=== PATIENT | male | born 1970 | race Caucasian/White ===

== ENCOUNTER 2016-09-13 12:11 | Inpatient (IN) | payer OTHER ==
[2016-09-13] VITALS (11 sets, daily range): BP systolic 110–136; BP diastolic 67–85
[~2016-09-13] VITALS: Ht 177.8 cm; Wt 117.9 kg
[2016-09-13] MEDS ORDERED: Morphine Sulfate 4mg/ml Inj IVP ONE (13:00)
--- NOTE | 2016-09-13 13:03 | Emergency Room Report ---
History of Present Illness General Chief Complaint: Pain Source: Patient Present Illness HPI The patient is a 46 old male status post cervical spine fusion 4 days prior presenting for hematoma of the surgical site as well as hypertension. The patient was seen as a followup by his surgeon today who told him to come to the emergency department. He was told that he would have an excision of a hematoma today after he has been admitted. Pain is described as a 2/10 dull ache to the surgical site and does not radiate. He has been using Johnson and soma for pain which has helped. He denies any fever or chills. He states that he has had prehypertensive diagnosed in the past but has never taken any anti-hypertensive medications. He denies any shortness of breath or chest pain. He denies other symptoms including N, V, chills, abd pain, MICHEL, dizziness Allergies: Coded Allergies: TETANUS IMMUNE GLOBULIN (Verified Allergy, Unknown, 09/13/16) Patient History Past Medical History: see triage record Pertinent Family History: none Reviewed Nursing Documentation: PMH: Agreed, PSxH: Agreed Nursing Documentation-PMH Hx Hypertension: Yes Review of Systems All Other Systems: negative except mentioned in HPI Physical Exam Vital Signs Date Time Temp Pulse Resp B/P Pulse Ox O2 Delivery O2 Flow Rate FiO2 09/13/16 12:16 98.4 18 97 Room Air Sp02 EP Interpretation: reviewed, normal General Appearance: no apparent distress, alert, GCS 15, non-toxic Head: normocephalic, atraumatic Eyes: bilateral eye PERRL, bilateral eye normal inspection ENT: hearing grossly normal, normal pharynx, no angioedema, normal voice Neck: other - surgical site of R anterior neck has soft tissue swelling and erythema. TTP. No drainage Respiratory: chest non-tender, lungs clear, normal breath sounds, speaking full sentences Cardiovascular #1: regular rate, rhythm, no edema, no gallop, no JVD, no murmur , no rub Cardiovascular #2: 2+ carotid (R), 2+ carotid (L), 2+ radial (R), 2+ radial (L) , 2+ dorsalis pedis (R), 2+ dorsalis pedis (L) Musculoskeletal: back normal, gait/station normal, normal range of motion, non- tender Neurologic: alert, oriented x3, responsive, motor strength/tone normal, sensory intact, speech normal Psychiatric: judgement/insight normal, memory normal, mood/affect normal, no suicidal/homicidal ideation Skin: normal color, no rash, warm/dry, well hydrated Lymphatic: no adenopathy Medical Decision Making PA Attestation Dr. Price is my supervising physician. Patient management was discussed with my supervising physician Diagnostic Impression: Primary Impression: Hematoma of neck Qualified Codes: S10.93XA - Contusion of unspecified part of neck, initial encounter Additional Impression: HTN (hypertension) Qualified Codes: I15.9 - Secondary hypertension, unspecified ER Course The patient is a 46 old male status post cervical spine fusion 4 days prior presenting for hematoma of the surgical site as well as hypertension. DDx considered but not limited to: surgical site hematoma, infection, thrombus, HTN urgency/emergency, among others PE: HTN. Afebrile. NAD HEENT: Surgical site of the R anterior neck has surrounding soft tissue swelling and erythema. No bleeding or DC. TTP. RRR. No MRG. Lungs CTA bilat. CXR unremarkable. EKG shows no acute changes. Labs show leukocytosis. Otherwise unremarkable. Cardiac markers essentially negative. Occult blood in urine. Pt has UTI which is being treated with PO cipro. The patient will be admitted and surgery for hematoma evacuation to be done at [address] Price has spoken with admitting physician. He agrees with plan and is NPO since this morning. Laboratory Tests Test 09/13/16 12:55 09/13/16 14:50 White Blood Count 12.5 K/UL (4.8-10.8) H Red Blood Count 5.14 M/UL (4.70-6.10) Hemoglobin 16.1 G/DL (14.2-18.0) Hematocrit 49.0 % (42.0-52.0) Mean Corpuscular Volume 95 FL (80-99) Mean Corpuscular Hemoglobin 31.3 PG (27.0-31.0) H Mean Corpuscular Hemoglobin Concent 32.8 G/DL (32.0-36.0) Red Cell Distribution Width 12.4 % (11.6-14.8) Platelet Count 327 K/UL (150-450) Mean Platelet Volume 6.3 FL (6.5-10.1) L Neutrophils (%) (Auto) 72.4 % (45.0-75.0) Lymphocytes (%) (Auto) 14.6 % (20.0-45.0) L Monocytes (%) (Auto) 10.8 % (1.0-10.0) H Eosinophils (%) (Auto) 1.1 % (0.0-3.0) Basophils (%) (Auto) 1.1 % (0.0-2.0) Prothrombin Time 10.0 SEC (9.30-11.50) Prothrombin Time INR 1.0 (0.9-1.1) PTT 30 SEC (23-33) Sodium Level 138 mEQ/L (135-145) Potassium Level 4.7 mEQ/L (3.4-4.9) Chloride Level 97 mEQ/L (98-107) L Carbon Dioxide Level 26 mEQ/L (20-30) Anion Gap 15 (5-15) Blood Urea Nitrogen 10 mg/dL (7-23) Creatinine 1.3 mg/dL (0.7-1.2) H Estimate Glomerular Filtration Rate 59.4 mL/min (>60) Glucose Level 97 mg/dL (74-106) Calcium Level 9.5 mg/dL (8.6-10.2) Total Bilirubin 0.7 mg/dL (0.0-1.2) Aspartate Amino Transferase (AST) 35 U/L (5-40) Alanine Aminotransferase (ALT) 42 U/L (3-41) H Alkaline Phosphatase 77 U/L (40-129) Total Creatine Kinase 143 U/L (38-174) Creatine Kinase MB < 1.5 ng/mL (< 6.7) Creatine Kinase MB Relative Index Troponin I < 0.30 ng/mL (<=0.30) Total Protein 7.5 g/dL (6.6-8.7) Albumin 4.4 g/dL (3.5-5.2) Globulin 3.1 g/dL Albumin/Globulin Ratio 1.4 (1.0-2.7) Urine Color Pale yellow Urine Appearance Clear Urine pH 7 (4.5-8.0) Urine Specific [place] 1.010 (1.005-1.035) Urine Protein Negative (NEGATIVE) Urine Glucose (UA) Negative (NEGATIVE) Urine Ketones 4+ (NEGATIVE) H Urine Occult Blood 4+ (NEGATIVE) H Urine Nitrite Negative (NEGATIVE) Urine Bilirubin Negative (NEGATIVE) Urine Urobilinogen Normal MG/DL (0.0-1.0) Urine Leukocyte Esterase Negative (NEGATIVE) Urine RBC 5-10 /HPF (0 - 0) H Urine WBC 0-2 /HPF (0 - 0) Urine Squamous Epithelial Cells None /LPF (NONE/OCC) Urine Bacteria Few /HPF (NONE) Lab Results Impression + leukocytosis. + occult blood in urine EKG Diagnostic Results EP Interpretation: NSR. Kay cute changes Rate: tachycardiac - 104 Rhythm: NSR ST Segments: no acute changes ASA given to the pt in ED: No PA Scribe Text EKG was reviewed and read with my supervising physician. No acute ST segment changes are seen. Normal rhythm. Mild tachycardia. No acute changes. Chest X-Ray Diagnostic Results Chest X-Ray Diagnostic Results : Chest X-Ray Ordered: Yes # of Views/Limited/Complete: 1 View Indication: Other - pre-op EP Interpretation: Yes Interpretation: no consolidation, no effusion, no pneumothorax, no acute cardiopulmonary disease Impression: No acute disease Interpreting ER Provider: Dr. Leah CONTRERAS Scribe Text I am acting as scribe for my supervising physician. My supervising physician's interpretation of the chest xrays are there is no consolidation, no effusion, no acute cardiopulmonary disease, no pneumothorax Last Vital Signs Date Time Temp Pulse Resp B/P Pulse Ox O2 Delivery O2 Flow Rate FiO2 09/13/16 12:16 98.4 18 97 Room Air Status: improved Disposition: ADMITTED INPATIENT Condition: Stable FRANSICO TROY Sep 13, 2016 13:03
[2016-09-13 13:18] LABS: BASOPHILS % (AUTO) 1.1 % (0.0-2.0); EOSINOPHILS % (AUTO) 1.1 % (0.0-3.0); LYMPHOCYTES % (AUTO) 14.6 % (20.0-45.0); MEAN CORPUSCULAR HEMOGLOBIN 31.3 PG (27.0-31.0); MEAN CORPUSCULAR HGB CONC 32.8 G/DL (32.0-36.0); MEAN CORPUSCULAR VOLUME 95 FL (80-99); MEAN PLATELET VOLUME 6.3 FL (6.5-10.1); MONOCYTES % (AUTO) 10.8 % (1.0-10.0); NEUTROPHILS % (AUTO) 72.4 % (45.0-75.0); PLATELET COUNT 327 K/UL (150-450); RED BLOOD COUNT 5.14 M/UL (4.70-6.10); RED CELL DISTRIBUTION WIDTH 12.4 % (11.6-14.8); WHITE BLOOD COUNT 12.5 K/UL (4.8-10.8)
[2016-09-13 13:28] LABS: CALCIUM 9.5 mg/dL (8.6-10.2); CREATININE 1.3 mg/dL (0.7-1.2); GLOMERULAR FILTRATION RATE 59.4 mL/min (>60); TOTAL PROTEIN 7.5 g/dL (6.6-8.7); TROPONIN I < 0.30 ng/mL (<=0.30)
[2016-09-13 13:29] LABS: ALBUMIN/GLOBULIN RATIO 1.4 (1.0-2.7); POTASSIUM 4.7 mEQ/L (3.4-4.9)
[2016-09-13 13:37] LABS: CKMB < 1.5 ng/mL (< 6.7)
[2016-09-13 15:20] LABS: APPEARANCE,URINE CLEAR; KETONES,URINE 4+ (NEGATIVE); LEUKOCYTE ESTERASE ,URINE NEGATIVE (NEGATIVE); NITRITE,URINE NEGATIVE (NEGATIVE); PH,URINE 7 (4.5-8.0); PROTEIN,URINE NEGATIVE (NEGATIVE); UROBILINOGEN,URINE NORMAL MG/DL (0.0-1.0)
[2016-09-13 15:41] LABS: BACTERIA,URINE FEW /HPF; WBC,URINE 0-2 /HPF (0 - 0)
[2016-09-13] MEDS ORDERED: LORazepam Inj 2mg/ml 1ml IV PRN ×2 (16:00→18:15)
[2016-09-13] MEDS ORDERED: DuoNeb 0.5-3(2.5)mg/3ml neb HHN PRN (16:00)
[2016-09-13] MEDS ORDERED: HydrALAZINE 25mg tab ORAL PRN (16:00)
[2016-09-13] MEDS ORDERED: Morphine Sulfate 4mg/ml Inj IVP PRN (16:00)
[2016-09-13] MEDS ORDERED: Morphine Sulfate 2mg/ml Inj IVP PRN (16:00)
[2016-09-13] MEDS ORDERED: Mylanta II UD 30ml ORAL PRN (16:00)
--- NOTE | 2016-09-13 16:26 | Pre-Procedure Note/Attestation ---
Pre-Procedure Note/Attestation Complete Prior to Procedure Planned Procedure: not applicable Procedure Narrative: Evacuation of postoperative cervical hematoma, irrigation and debridement Indications for Procedure Pre-Operative Diagnosis: Postoperative surgical hematoma and neck swelling Attestation I attest that I discussed the nature of the procedure; its benefits; risks and complications; and alternatives (and the risks and benefits of such alternatives ), prior to the procedure, with the patient (or the patient's legal technical sales representatives). I attest that, if there was a reasonable possibility of needing a blood transfusion, the patient (or the patient's legal technical sales representatives) was given the [facility] standardized written summary, pursuant to the [place] Blood Safety Act ([place] Health and Safety Code # 1645, as amended). I attest that I re-evaluated the patient just prior to the surgery and that there has been no change in the patient's H&P, except as documented below: HUANG PETERSON Sep 13, 2016 16:26
--- NOTE | 2016-09-13 16:26 | Brief Operative Note ---
Immediate Post Operative Note Operative Note Chief Complaint: Neck swelling with a patent airway Pre-op Diagnosis: Postoperative surgical hematoma and neck swelling Procedure: Evacuation of postoperative cervical hematoma, irrigation and debridement Post-op Diagnosis: same as pre-op Findings: consistent w/pre-op dx studies Surgeon: Nya Anesthesia: general Specimen: none Complications: none Condition: stable Estimated Blood Loss: none Drains: RAY Implant(s) used?: HUANG [place] Sep 13, 2016 16:26
--- NOTE | 2016-09-13 16:28 | History and Physical ---
History of Present Illness General Date patient seen: Sep 13, 2016 Time patient seen: 16:03 Reason for Hospitalization: cervical spine hematoma Present Illness HPI 46 y/o man who recently had cervical spine fusion at [facility] [facility] [place] , went to his postop followup appt with his surgeon, noted to have R neck swelling and redness around the incision site. He complains of pain in that area as well. Pt SBP was mostly in the 140s at home while on 5mg norvasc. However in spine surgeons office BP was 160/110. Pt was sent to the ER to be admitted for evacuation of cervical spine hematoma. No chest pain or dyspnea, no fevers/chills. SBP in the ED has been mostly in the 140-150 range, getting additional dose of norvasc now. Allergies: Coded Allergies: TETANUS IMMUNE GLOBULIN (Verified Allergy, Unknown, 09/13/16) Patient History History Provided By: Patient, Significant Other Healthcare decision maker Resuscitation status full code Advanced Directive on File Past Medical/Surgical History Past Medical/Surgical History: (1) Hematoma of neck (2) HTN (hypertension) Family History Family History: Patient reports no known family medical history. Social History Social History: (1) No significant social history Review of Systems ROS Narrative CONSTITUTIONAL: No weight loss, fever, chills, weakness or fatigue. HEENT: Eyes: No visual loss, blurred vision, double vision or yellow sclerae. Ears, Nose, Throat: No hearing loss, sneezing, congestion, runny nose or sore throat. SKIN: No rash or itching. CARDIOVASCULAR: No chest pain, chest pressure or chest discomfort. No palpitations or edema. RESPIRATORY: No shortness of breath, cough or sputum. GASTROINTESTINAL: No anorexia, nausea, vomiting or diarrhea. No abdominal pain or blood. NEUROLOGICAL: No headache, dizziness, syncope, paralysis, ataxia, numbness or tingling in the extremities. No change in bowel or bladder control. MUSCULOSKELETAL: + neck pain HEMATOLOGIC: No anemia, bleeding or bruising. LYMPHATICS: No enlarged nodes. No history of splenectomy. PSYCHIATRIC: No history of depression or anxiety. ENDOCRINOLOGIC: No reports of sweating, cold or heat intolerance. No polyuria or polydipsia. ALLERGIES: No history of asthma, hives, eczema or rhinitis. Physical Exam Physical Exam Narrative General: alert, cooperative, no distress, appears stated age Head: normocephalic, without obvious abnormality, atraumatic Eyes: conjunctivae/corneas clear. PERRL, EOM's intact Throat: lips, mucosa, and tongue normal. MMM Neck: + erythema, +edema on R neck Lungs: clear to auscultation bilaterally Heart: regular rate and rhythm, S1, S2 normal, no murmur, click, rub or gallop Abdomen: soft, non-tender, non-distended, bowel sounds normal; no masses or organomegaly Extremities: extremities normal, atraumatic, no cyanosis or edema Pulses: 2+ and symmetric Skin: skin color, texture, turgor normal; no rashes or lesions Neurologic: grossly normal, no focal deficits Last 24 Hour Vital Signs Date Time Temp Pulse Resp B/P Pulse Ox O2 Delivery O2 Flow Rate FiO2 09/13/16 15:52 98.4 18 136/74 97 Room Air 09/13/16 14:15 84 136/74 09/13/16 12:16 98.4 18 97 Room Air Laboratory Tests Test 09/13/16 12:55 09/13/16 14:50 White Blood Count 12.5 K/UL (4.8-10.8) H Red Blood Count 5.14 M/UL (4.70-6.10) Hemoglobin 16.1 G/DL (14.2-18.0) Hematocrit 49.0 % (42.0-52.0) Mean Corpuscular Volume 95 FL (80-99) Mean Corpuscular Hemoglobin 31.3 PG (27.0-31.0) H Mean Corpuscular Hemoglobin Concent 32.8 G/DL (32.0-36.0) Red Cell Distribution Width 12.4 % (11.6-14.8) Platelet Count 327 K/UL (150-450) Mean Platelet Volume 6.3 FL (6.5-10.1) L Neutrophils (%) (Auto) 72.4 % (45.0-75.0) Lymphocytes (%) (Auto) 14.6 % (20.0-45.0) L Monocytes (%) (Auto) 10.8 % (1.0-10.0) H Eosinophils (%) (Auto) 1.1 % (0.0-3.0) Basophils (%) (Auto) 1.1 % (0.0-2.0) Prothrombin Time 10.0 SEC (9.30-11.50) Prothromb Time International Ratio 1.0 (0.9-1.1) Activated Partial Thromboplast Time 30 SEC (23-33) Sodium Level 138 mEQ/L (135-145) Potassium Level 4.7 mEQ/L (3.4-4.9) Chloride Level 97 mEQ/L (98-107) L Carbon Dioxide Level 26 mEQ/L (20-30) Anion Gap 15 (5-15) Blood Urea Nitrogen 10 mg/dL (7-23) Creatinine 1.3 mg/dL (0.7-1.2) H Estimat Glomerular Filtration Rate 59.4 mL/min (>60) Glucose Level 97 mg/dL (74-106) Calcium Level 9.5 mg/dL (8.6-10.2) Total Bilirubin 0.7 mg/dL (0.0-1.2) Aspartate Amino Transf (AST/SGOT) 35 U/L (5-40) Alanine Aminotransferase (ALT/SGPT) 42 U/L (3-41) H Alkaline Phosphatase 77 U/L (40-129) Total Creatine Kinase 143 U/L (38-174) Creatine Kinase MB < 1.5 ng/mL (< 6.7) Creatine Kinase MB Relative Index Troponin I < 0.30 ng/mL (<=0.30) Total Protein 7.5 g/dL (6.6-8.7) Albumin 4.4 g/dL (3.5-5.2) Globulin 3.1 g/dL Albumin/Globulin Ratio 1.4 (1.0-2.7) Urine Color Pale yellow Urine Appearance Clear Urine pH 7 (4.5-8.0) Urine Specific [place] 1.010 (1.005-1.035) Urine Protein Negative (NEGATIVE) Urine Glucose (UA) Negative (NEGATIVE) Urine Ketones 4+ (NEGATIVE) H Urine Occult Blood 4+ (NEGATIVE) H Urine Nitrite Negative (NEGATIVE) Urine Bilirubin Negative (NEGATIVE) Urine Urobilinogen Normal MG/DL (0.0-1.0) Urine Leukocyte Esterase Negative (NEGATIVE) Urine RBC 5-10 /HPF (0 - 0) H Urine WBC 0-2 /HPF (0 - 0) Urine Squamous Epithelial Cells None /LPF (NONE/OCC) Urine Bacteria Few /HPF (NONE) Height (Feet): 5 Height (Inches): 10.00 Weight (Pounds): 250 Assessment/Plan Problem List: (1) Hematoma of neck Assessment & Plan: Admit to inpatient Pain control Supp care No anticoagulants, no nsaids If patient is required to have surgery, based on the patient's medical history, and other available ancillary data, the patient is a LOW risk for an INTERMEDIATE risk procedure. Per the most recent ACC/AHA guidelines, the patient does not need any further cardiopulmonary testing prior to the procedure and there do not appear to be any clear medical contraindications to proceeding with the proposed procedure. ICD Codes: S10.93XA - Contusion of unspecified part of neck, initial encounter SNOMED: 485065392 (2) HTN (hypertension) Assessment & Plan: Cont Norvasc, increase to 10mg daily Hydralazine prn SBP>140 ICD Codes: I10 - Essential (primary) hypertension SNOMED: 76812113 KETURAH FELDMAN Sep 13, 2016 16:28
[2016-09-13] MEDS ORDERED: Naloxone 0.4mg/ml Inj IVP PRN (16:30)
[2016-09-13] MEDS ORDERED: D5NS 1,000 ML IV SCH (16:30)
[2016-09-13] MEDS ORDERED: Bacitracin 50000 Units Vial ONE ×5 (16:34→18:43)
[2016-09-13] MEDS ORDERED: Glycopyrrolate 0.2mg/ml 1ml Vial ONE (17:00)
[2016-09-13] MEDS ORDERED: LR 1000ml ONE (17:00)
[2016-09-13] MEDS ORDERED: Lidocaine 1% MPF 10mg/ml 5ml ONE (17:00)
[2016-09-13] MEDS ORDERED: Dexamethasone 4mg/ml vial ONE (17:00)
[2016-09-13] MEDS ORDERED: Nimbex 2mg/ml Inj 10ML IVP ONE (17:00)
[2016-09-13] MEDS ORDERED: Midazolam 2mg/2ml Inj ONE (17:00)
[2016-09-13] MEDS ORDERED: Sterile Water Irrig 1000ml IRRIG ONE (17:00)
[2016-09-13] MEDS ORDERED: fentaNYL 100 mcg/2 mL IV ONE (17:00)
[2016-09-13] MEDS ORDERED: Propofol 10mg/ml 20ml IV ONE (17:09)
[2016-09-13] MEDS ORDERED: Vancomycin 1gm inj IVPB ONE ×4 (17:15→18:43)
[2016-09-13] MEDS ORDERED: Thrombin 5000 units TOPIC ONE ×2 (17:16→18:06)
[2016-09-13] MEDS ORDERED: Neostigmine 1mg/ml 10ml Inj ONE (18:04)
[2016-09-13] MEDS ORDERED: LR 1000ml 1,000 ML IVLG SCH (18:08)
--- NOTE | 2016-09-13 18:08 | Anethesia Preoperative Eval ---
Anesthesia Pre-op PMH/ROS General Date of Evaluation: Sep 13, 2016 Time of Evaluation: 16:56 Anesthesiologist: [place] ASA Score: ASA 3 - Emergency Mallampati Score Class I : Soft palate, uvula, fauces, pillars visible Class II: Soft palate, uvula, fauces visible Class III: Soft palate, base of uvula visible Class IV: Only hard plate visible Mallampati Classification: Class III Surgeon: Nay Diagnosis: Neck Hematoma Surgical Procedure: Evcuate Neck Hematoma Anesthesia History: none Family History: no anesthesia problems Allergies: Coded Allergies: TETANUS IMMUNE GLOBULIN (Verified Allergy, Unknown, 09/13/16) Medications: see eMAR Past Medical History Cardiovascular: Reports: HTN Other: obesity - BMI 36 PSxH Narrative: ACDF C5-6, C6-7 09/09/16 Anesthesia Pre-op Phys. Exam Physician Exam Last Vital Signs Date Time Temp Pulse Resp B/P Pulse Ox O2 Delivery O2 Flow Rate FiO2 09/13/16 17:09 18 132/76 98 09/13/16 15:52 98.4 Room Air 09/13/16 14:15 84 Constitutional: NAD Neurologic: CN 2-12 intact Cardiovascular: RRR Respiratory: CTA Gastrointestinal: S/NT/ND Airway Exam Mallampati Score: Class III MO: limited ROM: limited Teeth: intact Anesthesia Pre-op A/P Labs Hematology Test 09/13/16 12:55 White Blood Count 12.5 K/UL (4.8-10.8) H Red Blood Count 5.14 M/UL (4.70-6.10) Hemoglobin 16.1 G/DL (14.2-18.0) Hematocrit 49.0 % (42.0-52.0) Mean Corpuscular Volume 95 FL (80-99) Mean Corpuscular Hemoglobin 31.3 PG (27.0-31.0) H Mean Corpuscular Hemoglobin Concent 32.8 G/DL (32.0-36.0) Red Cell Distribution Width 12.4 % (11.6-14.8) Platelet Count 327 K/UL (150-450) Mean Platelet Volume 6.3 FL (6.5-10.1) L Neutrophils (%) (Auto) 72.4 % (45.0-75.0) Lymphocytes (%) (Auto) 14.6 % (20.0-45.0) L Monocytes (%) (Auto) 10.8 % (1.0-10.0) H Eosinophils (%) (Auto) 1.1 % (0.0-3.0) Basophils (%) (Auto) 1.1 % (0.0-2.0) Coagulation Test 09/13/16 12:55 Prothrombin Time 10.0 SEC (9.30-11.50) Prothromb Time International Ratio 1.0 (0.9-1.1) Activated Partial Thromboplast Time 30 SEC (23-33) Chemistry Test 09/13/16 12:55 Sodium Level 138 mEQ/L (135-145) Potassium Level 4.7 mEQ/L (3.4-4.9) Chloride Level 97 mEQ/L (98-107) L Carbon Dioxide Level 26 mEQ/L (20-30) Anion Gap 15 (5-15) Blood Urea Nitrogen 10 mg/dL (7-23) Creatinine 1.3 mg/dL (0.7-1.2) H Estimat Glomerular Filtration Rate 59.4 mL/min (>60) Glucose Level 97 mg/dL (74-106) Calcium Level 9.5 mg/dL (8.6-10.2) Total Bilirubin 0.7 mg/dL (0.0-1.2) Aspartate Amino Transf (AST/SGOT) 35 U/L (5-40) Alanine Aminotransferase (ALT/SGPT) 42 U/L (3-41) H Alkaline Phosphatase 77 U/L (40-129) Total Creatine Kinase 143 U/L (38-174) Creatine Kinase MB < 1.5 ng/mL (< 6.7) Creatine Kinase MB Relative Index Troponin I < 0.30 ng/mL (<=0.30) Total Protein 7.5 g/dL (6.6-8.7) Albumin 4.4 g/dL (3.5-5.2) Globulin 3.1 g/dL Albumin/Globulin Ratio 1.4 (1.0-2.7) Pre-Antibiotics Dru grams Ancef IV Given Within 1 Hr of Incision: Yes Time Given: 17:16 Luis Borjas MD Sep 13, 2016 18:08
--- NOTE | 2016-09-13 18:14 | Immediate Post-Op Evaluation ---
Immediate Post-Op Evalulation Immediate Post-Op Evalulation Procedure: Evacuate Neck Hematoma Date of Evaluation: Sep 13, 2016 Time of Evaluation: 19:30 IV Fluids: 1300 LR Blood Products: 0 Estimated Blood Loss: 30 Urinary Output: 0 Blood Pressure Systolic: 157 Blood Pressure Diastolic: 103 Pulse Rate: 104 Respiratory Rate: 16 O2 Sat by Pulse Oximetry: 98 Temperature (Fahrenheit): 98.5 Pain Score (1-10): 2 Nausea: No Vomiting: No Complications 0 Patient Status: awake, reacts, patent, extubated, none Hydration Status: adequate Dru Grams Ancef IV Given Within 1 Hr of Incision: Yes Time Given: 17:16 Luis Borjas MD Sep 13, 2016 18:14
[2016-09-13] MEDS ORDERED: DiphenhydrAMINE 50mg/ml Inj IVP PRN (18:15)
[2016-09-13] MEDS ORDERED: Ketorolac 60mg Inj IV PRN (18:15)
[2016-09-13] MEDS ORDERED: Metoclopramide 10mg/2ml Inj IVP PRN ×2 (18:15→22:00)
[2016-09-13] MEDS ORDERED: Hydromorphone 0.5mg/0.5ml inj IVP PRN (18:15)
[2016-09-13] MEDS ORDERED: Norco 5mg/325mg tab ORAL PRN ×2 (18:15→22:00)
[2016-09-13] MEDS ORDERED: fentaNYL 100 mcg/2 mL IV PRN (18:15)
[2016-09-13] MEDS ORDERED: Midazolam 2mg/2ml Inj IVP PRN (18:15)
[2016-09-13] MEDS ORDERED: Norco 7.5mg/325mg tab ORAL PRN ×3 (18:15→22:00)
[2016-09-13] MEDS ORDERED: Atropine Inj 1mg/10ml Syr IV PRN (18:15)
[2016-09-13] MEDS ORDERED: Oxycodone/Acetaminophen 5-325 ORAL PRN (18:15)
[2016-09-13] MEDS ORDERED: Meperidine 25mg/0.5ml Inj IV PRN (18:15)
[2016-09-13] MEDS ORDERED: Ketorolac 30mg Inj IV PRN (18:15)
[2016-09-13] MEDS ORDERED: Milk of Magnesia 30ml Ud ORAL PRN ×2 (21:00→22:00)
[2016-09-13] MEDS ORDERED: Docusate 100mg cap ORAL SCH (21:00)
[2016-09-13] MEDS ORDERED: Miralax 17gm pkt ORAL PRN (21:00)
[2016-09-13] MEDS ORDERED: PANTOPRAZOLE SO40 MG (21:49)
[2016-09-13] MEDS ORDERED: HYDROCODON-ACE1 EA13 (21:49)
[2016-09-13] MEDS ORDERED: AMLODIPINE BESYL5 MG (21:49)
[2016-09-13] MEDS ORDERED: CARISOPRODOL350 MG (21:49)
[2016-09-13] MEDS ORDERED: HYDROmorphone 1mg/ml Carpuject SUBQ PRN (22:00)
[2016-09-13] MEDS ORDERED: HYDROmorphone 1mg/ml Carpuject IVP PRN (22:00)
[2016-09-13] MEDS: NS w/KCl 20mEq 1,000 ML IV SCH (22:33)
[2016-09-13] MEDS: Dexamethasone 4mg/ml vial IVP SCH (23:32)
[2016-09-14 00:10] VITALS: BP 131/62
[2016-09-14] MEDS: ceFAZolin sod 1 GM in D5W 55 ML IV SCH ×3 (00:11→17:00)
--- NOTE | 2016-09-14 02:00 | Operative Note - Dictated ---
DATE OF OPERATION: 09/13/2016 NOTE: "POOR AUDIO QUALITY" SURGEON: Sai Fay M.D. PREOPERATIVE DIAGNOSIS: Hematoma, neck, status post anterior cervical diskectomy and fusion of C5-C6 and C6-C7. POSTOPERATIVE DIAGNOSIS: Hematoma, serous fluid. ANESTHESIOLOGIST: Luis Borjas M.D. PROCEDURE PERFORMED: 1. Dissection through altered and scarred anatomy. 2. Antibiotic irrigation and debridement with six liters of antibiotic saline impregnated with vancomycin, bacitracin, and cephalosporin. 3. Primary closure of subcutaneous and deep skin. 4. Evacuation of hematoma and/or serosanguineous fluid. 5. Use of operative microscope. COMPLICATIONS: None. DRAINS: x1 Hemovac wet drain, medium. INDICATIONS FOR SURGERY: The patient is a 46-year-old male, who recently underwent anterior cervical diskectomy and fusion of C5-C6 and C6-C7. He notified me on Tuesday that he developed significant swelling in the soft tissues and he was having trouble breathing and sleeping. We encouraged him to go to the ER. We felt that he was having difficulty with his airway. When I called him again on Tuesday, he was having trouble breathing. I informed him to come to the office where I examined him. He was hypertensive and had an elevated heart rate. His pulse oximetry saturation was 98% proving that he got sufficient airway. Given his hypertensive risk and elevated heart rate, we recommended an urgent admission to the hospital with urgent evacuation of possible hematoma of the neck. We had a long discussion with the patient regarding risks and benefits of surgery. Our discussion included, but is not limited to infection, bleeding, hardware failure, pseudoarthrosis, need for revision surgery, potential for infection and PICC line tape necessitating six weeks of antibiotics. He understood these and elected to proceed. His consent was signed and is in written and verbal form. He presents to [facility] today for his evacuation of the hematoma. INTRAOPERATIVE FINDINGS: Serous fluid, small clots of hematoma, swelling within the soft tissue anterior involving the sternocleidomastoid musculature. DESCRIPTION OF SURGERY: Under the benefit of LMA anesthesia, the patient was placed on the operative table in a supine position. An LMA was placed and preoperative antibiotics and steroids were given. The remainder of the procedure was performed under microscopic visualization. A prior incision has appeared to be healing with granulation tissue. The previous sutures were resected and the soft tissues were inspected. Despite many attempts to trying to express the platysma and sternocleidomastoid it still had a rock hard swollen appearance. There was nothing evident which could be expressed from the subcutaneous tissues. We encountered some serous fluid, clear, not cloudy, not appearing any pus. As part of the procedure the fluid was analyzed culture, we loosened tissue and sent in for aerobic and anaerobic cultures as well as a STAT Gram Stain. We encountered residual scar tissue throughout the anterior sprague russ approach. There were small areas anterior to the hardware when they were hematomas spotted throughout, which did not appear infected, however, the majority of serous fluid throughout the anterior neck appeared normal here, did not have any odor whatsoever. After the fluid was completely resected, we curettaged the bone and soft tissues. We curettaged the soft tissues and the anterior vertebral bodies. A deep retractor was deployed and irrigation was performed with six liters of normal saline and mixed impregnated with vancomycin, cephalosporin, and bacitracin powder in equal amounts of 6 liters bag and appropriate amount placed in each bag. After complete irrigation was performed, we then turned our attention towards placement of a deep medium Hemovac drain. Placement of the drain itself stimulated some bleeding of the scarred tissue and meticulous hemostasis was obtained with bipolar until proper hemostasis was obtained. We then turned our attention towards deep subcutaneous tissue where antibiotic vancomycin powder and bacitracin powder were placed deep to the fascia. Next, we turned our attention to closure. Closure consisted of 4-0, 3-0 nylon to the platysma, followed by 5-0 clear nylon for the superficial skin and subcutaneous skin followed by Dermabond dressing. All details of surgery were relayed to the family. He will be admitted overnight for hypertension control as well as to monitor his airway and his swelling. Sai Fay M.D. DR: NELDA JOB#: [id number] CC: EDUARDO
[2016-09-14 04:06] VITALS: BP 130/68
[2016-09-14] MEDS: Dexamethasone 4mg/ml vial IVP SCH ×2 (05:08→12:33)
[2016-09-14 08:00] VITALS: BP 128/66
[2016-09-14] MEDS: NS w/KCl 20mEq 1,000 ML IV SCH (08:49)
[2016-09-14 08:53] LABS: MEAN CORPUSCULAR HGB CONC 33.7 G/DL (32.0-36.0); MEAN CORPUSCULAR VOLUME 95 FL (80-99); MEAN PLATELET VOLUME 5.9 FL (6.5-10.1); PLATELET COUNT 325 K/UL (150-450); RED BLOOD COUNT 4.47 M/UL (4.70-6.10); RED CELL DISTRIBUTION WIDTH 12.3 % (11.6-14.8); WHITE BLOOD COUNT 12.8 K/UL (4.8-10.8)
[2016-09-14] MEDS ORDERED: Docusate 100mg cap ORAL SCH (09:00)
[2016-09-14 09:04] LABS: ANION GAP 12 (5-15); CALCIUM 8.6 mg/dL (8.6-10.2); CARBON DIOXIDE 24 mEQ/L (20-30); CHLORIDE 101 mEQ/L (98-107); CREATININE 1.1 mg/dL (0.7-1.2); GLOMERULAR FILTRATION RATE > 60 mL/min (>60); HEMOLYSIS 4; POTASSIUM 4.1 mEQ/L (3.4-4.9); SODIUM 137 mEQ/L (135-145)
[2016-09-14 09:18] LABS: BAND NEUTROPHILS % (MANUAL) 0 % (0-8); BASOPHILS % (MANUAL) 0 % (0-2); EOSINOPHILS % (MANUAL) 0 % (0-3); LYMPHOCYTES % (MANUAL) 8 % (20-45); NEUTROPHILS % (MANUAL) 90 % (45-75); PLATELET ESTIMATE ADEQUATE; PLATELET MORPHOLOGY NORMAL; TOTAL CELLS COUNTED 100
--- NOTE | 2016-09-14 09:49 | 48 Hour Post Anesthesia Eval ---
Post Anesthesia Evaluation Procedure: Evacuate Neck Hematoma Date of Evaluation: Sep 14, 2016 Time of Evaluation: 09:48 Blood Pressure Systolic: 126 0: 64 Pulse Rate: 72 Respiratory Rate: 20 Temperature (Fahrenheit): 97.6 O2 Sat by Pulse Oximetry: 99 Airway: patent Nausea: No Vomiting: No Pain Intensity: 3 Hydration Status: adequate Cardiopulmonary Status: stable Mental Status/LOC: patient returned to baseline Follow-up Care/Observations: n/a Post-Anesthesia Complications: none Follow-up care needed: N/A PAVEL GAGE M.D. Sep 14, 2016 09:49
[2016-09-14 12:00] VITALS: BP 120/68
[2016-09-14] MEDS ORDERED: NORVASC10 MG ORAL ×2 (13:30→13:32)
--- NOTE | 2016-09-14 15:45 | Infectious Diseases Prog Note ---
Assessment/Plan Assessment/Plan Full consult dictated: A) 1) s/p cervical spine surgery with neck soft tissue swelling - suspect seroma /hematoma and less likely infection, wc negative so far, post-operative leukocytosis noted 2) s/p debridement, evacuation of hematoma/serosanguineous fluid, abx irrigation 3) s/p C5-C7 diskectomy and fusion this past - 09/09/16 at [facility] 4) HTN, recently on cipro for uti, pmh o/w negative, sh-negative, fh-nc, allergies tetnus, mar noted, notes and records reviewed 5) d/w RN P) 1) s/p perioperative vancomycin and now on ancef 2) can discharge on po bactrim and keflex 3) will f/u on cultures 4) patient to f/u with Dr. Fay on - 09/16/16 5) patient to f/u with me in 2 weeks if needed, sooner if needed 6) d/w Dr. Fay and Dr. Orellana 7) d/w with patient and , answered questions, told patient and for him to go to ER [facility] if notice any fevers or worsening clinically Subjective Allergies: Coded Allergies: TETANUS IMMUNE GLOBULIN (Verified Allergy, Unknown, 09/13/16) Objective Vital Signs Last 24 Hour Vital Signs Date Time Temp Pulse Resp B/P Pulse Ox O2 Delivery O2 Flow Rate FiO2 09/14/16 12:00 104 09/14/16 12:00 98.0 101 18 120/68 98 Room Air 98 09/14/16 09:49 72 20 99 09/14/16 08:54 93 128/66 09/14/16 08:20 100 20 Room Air 21 09/14/16 08:00 90 09/14/16 08:00 98.1 93 18 128/66 96 Room Air 95 09/14/16 04:06 98.6 90 20 130/68 94 Nasal Cannula 09/14/16 04:00 90 09/14/16 00:10 98.8 97 21 131/62 95 Room Air 09/14/16 00:00 87 09/13/16 21:06 98.3 91 20 131/78 98 Nasal Cannula 09/13/16 20:25 98.5 88 17 121/75 95 Nasal Cannula 3.0 09/13/16 20:12 88 17 120/81 95 Nasal Cannula 3.0 09/13/16 20:04 98.5 09/13/16 20:04 98.5 09/13/16 20:03 81 16 110/75 98 Nasal Cannula 3.0 09/13/16 19:50 79 16 117/67 98 Simple Mask 8.0 09/13/16 19:45 83 16 119/72 98 Simple Mask 8.0 09/13/16 19:38 87 16 116/68 96 Simple Mask 8.0 09/13/16 19:30 88 20 Room Air 21 09/13/16 19:29 96 16 122/76 96 Simple Mask 8.0 09/13/16 19:24 93 16 127/85 96 Simple Mask 8.0 09/13/16 19:19 98.5 96 16 124/78 96 Simple Mask 8.0 09/13/16 19:19 104 16 98 09/13/16 17:09 18 132/76 98 09/13/16 15:52 98.4 18 136/74 97 Room Air Height (Feet): 5 Height (Inches): 10.00 Weight (Pounds): 260 Microbiology Date/Time Source Procedure Growth Status 09/13/16 17:55 Neck Gram Stain - Final Resulted 09/13/16 17:55 Neck Wound Culture - Preliminary NO GROWTH Resulted Laboratory Tests Test 09/14/16 07:45 White Blood Count 12.8 K/UL (4.8-10.8) H Red Blood Count 4.47 M/UL (4.70-6.10) L Hemoglobin 14.3 G/DL (14.2-18.0) Hematocrit 42.6 % (42.0-52.0) Mean Corpuscular Volume 95 FL (80-99) Mean Corpuscular Hemoglobin 32.0 PG (27.0-31.0) H Mean Corpuscular Hemoglobin Concent 33.7 G/DL (32.0-36.0) Red Cell Distribution Width 12.3 % (11.6-14.8) Platelet Count 325 K/UL (150-450) Mean Platelet Volume 5.9 FL (6.5-10.1) L Neutrophils (%) (Auto) % (45.0-75.0) Lymphocytes (%) (Auto) % (20.0-45.0) Monocytes (%) (Auto) % (1.0-10.0) Eosinophils (%) (Auto) % (0.0-3.0) Basophils (%) (Auto) % (0.0-2.0) Differential Total Cells Counted 100 Neutrophils % (Manual) 90 % (45-75) H Lymphocytes % (Manual) 8 % (20-45) L Monocytes % (Manual) 2 % (1-10) Eosinophils % (Manual) 0 % (0-3) Basophils % (Manual) 0 % (0-2) Band Neutrophils 0 % (0-8) Platelet Estimate Adequate Platelet Morphology Normal Red Blood Cell Morphology Normal Sodium Level 137 mEQ/L (135-145) Potassium Level 4.1 mEQ/L (3.4-4.9) Chloride Level 101 mEQ/L (98-107) Carbon Dioxide Level 24 mEQ/L (20-30) Anion Gap 12 (5-15) Blood Urea Nitrogen 15 mg/dL (7-23) Creatinine 1.1 mg/dL (0.7-1.2) Estimat Glomerular Filtration Rate > 60 mL/min (>60) Glucose Level 136 mg/dL (74-106) H Calcium Level 8.6 mg/dL (8.6-10.2) Current Medications Medications (Trade) Dose Ordered Sig/Jessica Route PRN Reason Start Time Stop Time Status Last Admin Dose Admin Acetaminophen (Tylenol) 650 mg Q4H PRN ORAL headache or temp>101 09/13/16 21:30 10/13/16 21:29 Acetaminophen/ Hydrocodone Bitart ([place] 5/325) 1 tab Q3H PRN ORAL Mild Pain (Pain Scale 1-3) 09/13/16 22:00 09/20/16 21:59 Acetaminophen/ Hydrocodone Bitart ([place] 7.5/325) 1 ea Q3H PRN ORAL Moderate Pain (Pain Scale 4-6) 09/13/16 22:00 09/20/16 21:59 Acetaminophen/ Hydrocodone Bitart ([place] 7.5/325) 2 ea Q3H PRN ORAL Severe Pain (Pain Scale 7-10) 09/13/16 22:00 09/20/16 21:59 09/13/16 21:10 Al Hydroxide/Mg Hydroxide (Mylanta II) 30 ml Q6H PRN ORAL dyspepsia 09/13/16 16:00 10/13/16 15:59 Albuterol/ Ipratropium (DuoNeb 0.5-3(2.5)mg/3ml) 3 ml Q4H PRN HHN Shortness of Breath 09/13/16 16:00 09/18/16 15:59 Amlodipine Besylate (Norvasc) 10 mg DAILY ORAL 09/14/16 09:00 10/14/16 08:59 09/14/16 08:54 Bisacodyl (Dulcolax) 10 mg HSPRN PRN RECTAL Constipation 09/13/16 21:00 10/13/16 20:59 Carisoprodol (Soma) 350 mg TIDPRN PRN ORAL SPASM 09/13/16 16:30 10/13/16 16:29 Cefazolin Sodium/ Dextrose (Ancef/D5W) 55 ml @ 110 mls/hr Q8H IV 09/14/16 01:00 09/14/16 17:29 09/14/16 08:50 Dexamethasone Sodium Phosphate (Decadron 4mg/ml vial) 4 mg Q6HR IVP 09/14/16 00:00 09/14/16 18:01 09/14/16 12:33 Dextrose (Dextrose 50%) STAT PRN IV Hypoglycemia 09/13/16 16:00 10/13/16 15:59 Diphenhydramine HCl (Benadryl) 25 mg Q6H PRN ORAL Itching/Pruritis 09/13/16 16:00 10/13/16 15:59 Docusate Sodium (Colace) 100 mg TWICE A DAY ORAL 09/14/16 09:00 10/14/16 08:59 09/14/16 08:50 Hydralazine HCl 25 mg 25 mg Q6H PRN ORAL SBP>140 09/13/16 16:00 10/13/16 15:59 Hydromorphone HCl (Dilaudid) 1 mg Q4H PRN SUBQ Mild Pain (Pain Scale 1-3) 09/13/16 22:00 09/20/16 21:59 Hydromorphone HCl (Dilaudid) 2 mg Q3H PRN SUBQ Severe Pain (Pain Scale 7-10) 09/13/16 22:00 09/20/16 21:59 Hydromorphone HCl (Dilaudid) 2 mg Q4H PRN SUBQ Moderate Pain (Pain Scale 4-6) 09/13/16 22:00 09/20/16 21:59 Hydromorphone HCl 1 mg 1 mg Q2H PRN IVP Breakthrough Pain 09/13/16 22:00 09/20/16 21:59 Lorazepam (Ativan 2mg/ml 1ml) 0.5 mg Q4H PRN IV For Anxiety 09/13/16 16:00 09/20/16 15:59 Magnesium Hydroxide (Mom) 30 ml QIDPRN PRN ORAL Constipation 09/13/16 22:00 10/13/16 21:59 Metoclopramide HCl (Reglan) 10 mg Q6H PRN IVP Nausea & Vomiting 09/13/16 22:00 10/13/16 21:59 Naloxone HCl (Narcan) 0.1 mg PRN PRN IVP RR<12/min, pt unarousable 09/13/16 16:30 10/13/16 16:29 Ondansetron HCl (Zofran) 4 mg Q6H PRN IVP Nausea & Vomiting 09/13/16 22:00 10/13/16 21:59 Polyethylene Glycol (Miralax) 17 gm HSPRN PRN ORAL Constipation 09/13/16 21:00 10/13/16 20:59 Sodium Chloride (NS w/KCl 20mEq) 1,000 ml @ 100 mls/hr Q10H IV 09/13/16 22:30 10/13/16 22:29 09/14/16 08:49 Temazepam (Restoril) 15 mg HSPRN PRN ORAL Insomnia 09/13/16 21:00 09/20/16 20:59 BART REGAN Sep 14, 2016 15:45
[2016-09-14] MEDS ORDERED: Tubing IV Secondary IV ONE (16:59)
--- NOTE | 2016-09-14 19:33 | Discharge Summary ---
Discharge Summary Hospital Course Date of Admission Sep 13, 2016 at 13:50 Date of Discharge Sep 14, 2016 at 17:00 Admitting Diagnosis hypertensive urgency HPI Villa Barriga is a 46 year old male who was admitted on Sep 13, 2016 at 13:50 for Hypertensive Urgency Discharge Medications New Medications: Amlodipine Besylate (Norvasc) 10 Mg Tablet 10 MG ORAL DAILY for 30 Days, #30 TAB 2 Refills Continued Medications: Carisoprodol* (Carisoprodol*) 350 Mg Tablet #60 Hydrocodone Bit/Acetaminophen 10-325* (Hydrocodon-Acetaminophn 10-325*) 1 Each Tablet #90 Pantoprazole* (Pantoprazole*) 40 Mg Tablet. #30 Discontinued Medications: Amlodipine Besylate* (Amlodipine Besylate*) 5 Mg Tablet #30 Discharge Condition Upon Discharge: stable Discharge Disposition Patient was discharged to Home (01) Discharge Diagnoses: Reyna Leon M.D. Sep 14, 2016 19:27
--- NOTE | 2016-09-14 20:45 | Consultation ---
DATE OF CONSULTATION: 09/14/2016 INFECTIOUS DISEASE CONSULTATION CONSULTING PHYSICIAN: Hudson Wolff M.D. ATTENDING PHYSICIAN: Tyson Ruiz M.D. and Sai Fay M.D. REFERRING PHYSICIAN: Delete if not dictated HISTORY OF PRESENT ILLNESS: This is a 46-year-old male who recently had cervical spine surgery on this past , the date of which would be 09/09/2016. He had it [facility]. The patient noted to also have recent urinary tract infection and was put on Cipro. The patient was noted to have worsening neck swelling over the last several days. He discussed with Dr. Fay and he felt that he was having difficulty breathing. The patient had significant neck swelling on the right side of his neck. The patient was admitted to [facility] and he is status post surgery and he had a debridement and evacuation of hematoma and serosanguineous fluid and antibiotic irrigation. Infectious Disease consultation was requested to see if this patient has a postoperative infection. Upon discussing with Dr. Fay and reviewing the operative note, it seemed like it was serosanguineous fluid and no pus. The patient has been given vancomycin and Ancef perioperatively. MAR was noted, orders noted, notes are reviewed. The patient has no fevers. He has mild postoperative leukocytosis. REVIEW OF SYSTEMS: As discussed in the HPI, the patient's main issue was swelling of the neck, mostly in the right side of the neck and difficulty breathing.Constitutional: No fever or chills. No night sweats or weight loss. Cardiac: No chest pain. Gastrointestinal: No nausea, vomiting, or diarrhea . Genitourinary: He did have what sounds like urinary tract symptoms and was placed on Cipro and that has improved. Pulmonary: No congestion or shortness of breath. Skin: No rash. Neurologic: No seizures. No neck stiffness per se. PAST MEDICAL HISTORY: History of hypertension. He has a history of anterior cervical spine surgery, which included C5-C7 discectomy and fusion. This was recently done on 09/09/2016. The patient has a history of neck and back pain. ALLERGIES: Tetanus. FAMILY HISTORY: Noncontributory. SOCIAL HISTORY: Negative for smoking, alcohol, or drug abuse. MEDICATIONS: According to the MAR, he is on the following medications. He is on Colace, Norvasc, and amlodipine. He is on hydromorphone or Dilaudid. He is on hydrocodone or [place]. He has been on Reglan, MOM, Tylenol, Zofran, and perioperative vancomycin and Ancef. He has been on MiraLax and Restoril. Outside medications were noted and reconciliated. He was on amlodipine. He was on hydrocodone, pantoprazole, and carisoprodol. PHYSICAL EXAMINATION: VITAL SIGNS: Temperature is 98.0, pulse rate 101, respiratory rate 18, saturation 98%, and pulse rate 98. GENERAL: Alert, responsive, in no acute distress. HEAD AND NECK: Oral exam, no thrush. Eye exam, no icterus. Neck is supple. His cervical wound postoperatively is covered with a drain. I have reviewed pictures he took on his phone of his neck. It looks like the neck is significantly less swollen, and on palpation of the neck, there is no evidence of cellulitis or fluctuance. HEART: Regular. No gallop or murmur. ABDOMEN: Soft. Positive bowel sounds. Nontender. LUNGS: Clear bilaterally. No rhonchi or rales. SKIN: No rash or dermatitis. MUSCULOSKELETAL: No effusion or contractures. Extremities, legs are without cellulitis. PERIPHERAL VASCULAR: No cyanosis or gangrene. NEUROLOGIC: Intact. GENITOURINARY: No [place]. LINES: Line sites are without phlebitis. LABORATORY DATA: White count 12.8, hemoglobin 14.3. Creatinine is 1.1. Postoperative wound culture so far shows no growth. His preliminary gram stain showed no bacteria or no organisms. Operative report was noted. It is consistent. Intraoperative findings showed that the patient had clots of hematoma and serous fluid. No pus was mentioned. ASSESSMENT AND PLAN: 1. The patient has cervical spine soft tissue swelling postoperatively. It looks like I suspect the patient has hematoma/seroma with serosanguineous fluid. Seems to be less likely infection. Wound culture so far is negative. However, the patient was recently on Cipro for urinary tract infection. At this time, he is on Ancef perioperatively and if he will be discharged, he can be placed on Bactrim and Keflex postoperatively certainly until cultures are back. We will await final cultures. The patient from an ID standpoint is stable for discharge. However, the patient does have a drain and he just had a recent surgery and I will defer to Surgery for discharge planning from that standpoint. We will watch the patient clinically as an outpatient if he is discharged. The patient to follow up with Dr. Fay on and also to follow up with me as needed in two weeks and certainly sooner if needed. I discussed the case with Dr. Fay and Dr. Orellana who is covering for Dr. Ruiz who is Internal Medicine. I also discussed at length with the patient and his that if there is any change in clinical status such as fevers or swelling of the neck, etc., to call his physicians and to go to the nearest emergency room as soon as possible. 2. The patient has history of hypertension. Treatment per Internal Medicine. 3. The patient has a history of C5-C7 discectomy and fusion on on 09/09/2016. 4. Pain management per Primary and Spine Surgery. 5. History of cervical and lower back pain. 6. Social history negative. 7. Allergies to tetanus. 8. Family history noncontributory. 9. MAR is noted. 10. Notes are reviewed. Thank you. I will follow. Genaro Bedolla JOB#: [id number] CC:
--- NOTE | 2016-09-15 10:02 | Diagnostic Imaging Report ---
Indication: Chest pain Technique: Single portable AP view of the chest. Findings: Comparison: None. Metallic densities overlie the lower cervical spine. The bones and extra pulmonary soft tissues, cardiomediastinal silhouette, pulmonary vasculature and parenchyma, and pleural surfaces are otherwise unremarkable. IMPRESSION: Possible previous cervical fusion Otherwise negative portable AP chest.
== END 2016-09-14 17:00 | disposition home or self-care (01) | DRG 909 ==
LOC: EMR 13:39 → 2E 13:50 → EDBEDREQ 14:12 → 2E 18:41
DX: L76.32 Postprocedural hematoma of skin and subcutaneous tissue following other procedure (principal); I10 Essential (primary) hypertension; D72.829 Elevated white blood cell count, unspecified
CPT/HCPCS: 36415; 71010; 80048; 80053; 81003; 82550; 82553; 84484; 85007; 85025; 85610; 85730; 86850; 86900; 86901; 87070; 87075; 87205; 93005; 94003; 94150; 94664; J2250; J2405; J2710